=== PATIENT | male | born 1960 | race Caucasian/White ===

== ENCOUNTER → 2025-03-25 07:42 | Outpatient (REF) | payer OTHER, SELFPAY | LOC: HWRAD 07:42 | PROVIDERS: ATTENDING PHYSICIAN Physician Assistant Medical | DX: M54.50 Low back pain, unspecified (principal) | CPT/HCPCS: 72110 ==

== ENCOUNTER 2025-04-25 07:05 | Outpatient (RCR) | payer OTHER, SELFPAY | END 2025-04-25 23:59 | disposition home or self-care (01) | LOC: RPT 07:05 | PROVIDERS: ATTENDING PHYSICIAN Physician Assistant Medical | DX: M54.59 Other low back pain (principal); Z73.6 Limitation of activities due to disability; M62.81 Muscle weakness (generalized) | CPT/HCPCS: 97110; 97112; 97161 ==